=== PATIENT | female | born 1950 | race Caucasian/White ===

== ENCOUNTER 2017-11-10 02:24 | Inpatient (IN) | payer OTHER, MEDICARE ==
[~2017-11-10] VITALS: Ht 154.9 cm; Wt 73.6 kg
[~2017-11-10 02:24] MED LIST: AMITRIPTYLINE H25 M1 PO; AMITRIPTYLINE H25 M2 PO; ANTIVERT 25 MG25 M1 PO; BACTROBAN OINT.30 GM TOP; BACTROBAN15 GM TOP; BETAMETHASONE D0.054 TOP; BETAMETHASONE D15 G3 TOP; BIOTIN5000 MCG PO; CO Q-1050 MG PO; COMPAZINE10 M1 PO; COMPAZINE10 MG PO; CRESTOR5 M1 PO; CRESTOR5 MG PO; CULTURELLE PO; DESOXIMETASONE15 G1 TOP; FAMCICLOVIR500 M1 PO; FAMCICLOVIR500 MG PO; GABAPENTIN300 M2 PO; MECLIZINE HCL25 MG PO; MEDROL DOSEPAK1 PAC PO; METROCREAM0.75% TOP; METROCREAM45 GM TOP; NEURONTIN300 MG PO; OMEPRAZOLE40 M1 PO; OMEPRAZOLE40 MG PO; PROAIR HFA0.09 MG/Ac INH; PROBIOTIC1 EAC5 PO; REGLAN10 M1 PO; REGLAN5 MG PO; TOPICORT0.251 TOP; UBIQUINOL100 MG PO; VITAMIN D2000 UNIT PO; VITAMIN D32000 I1 PO; [UNRECOGNIZED DRUG - OTHER] PO
--- NOTE | 2017-11-10 03:06 | ED UPPER/LOWER EXTREMITY COMPL ---
See Addendum History of Present Illness General Chief Complaint: Fall Stated Complaint: FALL Source: patient, family, old records, EMS Exam Limitations: no limitations Vital Signs & Intake/Output Vital Signs & Intake/Output Vital Signs Date Time Temp Pulse Resp B/P B/P Pulse O2 O2 Flow FiO2 Mean Ox Delivery Rate 11/10 0601 98.0 82 18 131/68 98 Room Air 11/10 0514 98.2 82 16 145/69 96 Room Air 11/10 0232 98.1 86 20 162/74 94 Room Air Allergies Coded Allergies: Influenza Virus Vaccines (CELLULITIS, POSITIVE EGG ALLERGY 08/26/15) atorvastatin (MUSCLE ACHES 06/24/17) latex (UNKNOWN 08/26/15) lovastatin (MUSCLE ACHES 06/24/17) nitrofurantoin (GI UPSET 08/26/15) simvastatin (MUSCLE ACHES 06/24/17) zoster vaccine live (From ZOSTAVAX (PF)) (UNKNOWN 08/26/15) niacin (Mild, GI UPSET 08/26/15) amoxicillin (GI UPSET 08/26/15) clindamycin (GI UPSET 08/26/15) erythromycin base (GI UPSET 08/26/15) levofloxacin (GI UPSET 08/26/15) pravastatin (GI UPSET 08/26/15) Uncoded Allergies: ANTIBIOTICS (STOMACH SENSITIVITY 09/01/11) Reconcile Medications Amitriptyline HCl 25 MG TABLET 1 TAB PO QPM FIBROMYALGIA (Reported) Bacillus Coagulans (Probiotic) (Unknown Strength) CAPSULE.DR (Unknown Dose) PO DAILY PROBIOTIC (Reported) Betamethasone/Propylene Glyc (Betamethasone Dp Aug 0.05% Crm) 0.05 % CREAM..G. 1 DIAMOND TOP AD PRN SKIN (Reported) Biotin 5,000 MCG TAB.RAPDIS 1 CAP PO DAILY SUPPLEMENT (Reported) Cholecalciferol (Vitamin D3) (Vitamin D) 2,000 UNIT CAPSULE 1 CAP PO EOD SUPPLEMENT (Reported) Cyclobenzaprine HCl 5 MG TABLET 5 MG PO PRN MUSCLE SPASM (Reported) Desoximetasone 0.25 % CREAM..G. 1 DIAMOND TOP AD PRN SKIN (Reported) Famciclovir 500 MG TABLET 1 TAB PO PRN COLD SORE (Reported) Gabapentin 300 MG CAPSULE 1 CAP PO QPM FIBROMYALGIA (Reported) Meclizine HCl 25 MG TABLET 1 TAB PO PRN VERTIGO (Reported) Metoclopramide HCl (Reglan) 10 MG TABLET 1 TAB PO AD PRN GI (Reported) 30 minutes before meals and bedtime Metronidazole (Metrocream) 0.75 % CREAM..G. 1 DIAMOND TOP DAILY PRN ROSACEA ( Reported) apply to affected area(s) Mupirocin Calcium (Bactroban) 2 % CREAM..G. 1 DIAMOND TOP AD PRN SKIN (Reported) apply to affected area(s) Omeprazole 40 MG CAPSULE.DR 1 CAP PO BID PRN GI (Reported) Omeprazole 40 MG CAPSULE.DR 40 MG PO DAILY ACID REFLUX (Reported) Prochlorperazine Maleate (Compazine) (Unknown Strength) TABLET (Unknown Dose) PO AD PRN GI (Reported) Rosuvastatin Calcium (Crestor) 5 MG TABLET 1 TAB PO EOD CHOLESTEROL (Reported ) Ubiquinol (Unknown Strength) CAPSULE (Unknown Dose) PO DAILY SUPPLEMENT ( Reported) Triage Note: PT BIBA FROM HOME S/P FALL AND LANDING ON L HIP. C/O L HIP AND FOOT PAIN. CMS INTACT. DENIES HEADSTRIKE OR LOC, NOT ON THINNNERS. DENIES PAIN AT REST BUT STATES IS UNABLE TO BEAR WEIGHT ON LLE Triage Nurses Notes Reviewed? yes Onset: Just prior to arrival Duration: minute(s):, constant, continues in ED Timing: recent history Severity: severe Pain/Injury Location: Left: Hip, Knee, Ankle. Method of Injury: fall Modifying Factors: Improves With: immobilization. Worsens With: movement. Associated Symptoms: GCS 15 since, stiffness LMP (ages 10-50): post menopausal : No Patient currently breastfeeds: No HPI: Prior to admission patient got up from the couch lost her balance and fell onto her left hip. She complains of left hip knee and ankle pain sharp severe constant nonradiating associated with nausea vomiting. She was unable to ambulate after the incident. There was no fever chills nausea vomiting diarrhea abdominal pain chest pain shortness of breath headache dysuria rash bleeding (Ben Denton MD) Past History Travel History Traveled to [place] past 21 day No Medical History Any Pertinent Medical History? see below for history Neurological: NONE EENT: NONE Cardiovascular: hypertension, hyperlipidemia Respiratory: NONE Gastrointestinal: GERD Hepatic: NONE Renal: NONE Musculoskeletal: fibromyalgia Psychiatric: NONE Endocrine: osteoporosis Surgical History Surgical History: BUNIONECTOMY, HAMMER TOE Psychosocial History Who do you live with Spouse Services at Home None What is your primary language Belarusian Tobacco Use: Quit >30 days ago ETOH Use: denies use Illicit Drug Use: denies illicit drug use Family History Hx Contributory? No (Ben Denton MD) Review of Systems Review of Systems Constitutional: Reports: no symptoms. EENTM: Reports: no symptoms. Respiratory: Reports: no symptoms. Cardiovascular: Reports: no symptoms. Gastrointestinal/Abdominal: Reports: no symptoms. Genitourinary: Reports: no symptoms. Musculoskeletal: Reports: see HPI, joint pain. Skin: Reports: no symptoms. Neurological/Psychological: Reports: no symptoms. Hematologic/Endocrine: Reports: no symptoms. Immunological: Reports: no symptoms. All Other Systems: Reviewed and Negative (Ben Denton MD) Physical Exam Physical Exam General Appearance: well developed/nourished, alert, awake, anxious, mild distress Head: atraumatic, normal appearance Eyes: Bilateral: normal appearance, PERRL, EOMI. Ears, Nose, Throat: normal pharynx, normal ENT inspection, hearing grossly normal Neck: normal inspection, supple, full range of motion, no midline tenderness Cardiovascular/Respiratory: normal breath sounds, normal peripheral pulses, regular rate/rhythm, no respiratory distress Peripheral Pulses: 4+ carotid (R), 4+ carotid (L) Back: normal inspection, normal range of motion, no vertebral tenderness Shoulder Left: normal range of motion, normal inspection Shoulder Right: normal range of motion, normal inspection Elbow Left: normal range of motion, normal inspection Elbow Right: normal range of motion, normal inspection Hand Left: normal range of motion, abrasions (index finger) Hand Right: normal inspection, normal range of motion Upper Extremity Reflexes: 2+: bicep (R), bicep (L). Leg Left: normal range of motion, normal inspection Leg Right: normal range of motion, normal inspection Hip Left: normal inspection, soft tissue tenderness, limited range of motion Hip Right: normal range of motion, normal inspection Knee Left: normal inspection, tenderness, soft tissue tenderness, limited range of motion Knee Ligaments Left: pain anterior drawer, pain posterior drawer, pain medial stress Knee Right: normal range of motion, normal inspection Foot Left: normal range of motion, tenderness, limited range of motion, soft tissue tenderness, swelling (lateral malleolus) Foot Right: normal inspection, normal range of motion Lower Extremity Reflexes: 2+: knee (R), knee (L). Neurologic/Tendon: normal sensation, normal motor functions, normal tendon functions Skin: intact, normal color, warm/dry Lymphatic: no anterior cervical estelle (Ben Denton MD) Progress Differential Diagnosis: dislocation, fracture, sprain Plan of Care: Orders Procedure Date/time Status Regular Diet 11/10 B Active Vital Signs 11/10 0808 Active PARTIAL THROMBOPLASTIN TIME 11/10 05 Complete PROTHROMBIN TIME 11/10 534 Complete PT Evaluate & Treat 11/10 524 Active CASE MANAGEMENT CONSULT 11/10 524 Active URINALYSIS 11/10 518 Complete COMPREHENSIVE METABOLIC PANEL 11/10 518 Complete CBC WITHOUT DIFFERENTIAL 11/10 518 Complete Current Medications Sig/Myra Start time Last Medication Dose Stop Time Status Admin Amitriptyline HCl 25 MG QPM 11/10 2099 UNVr (Elavil 25 Mg. Tablet) Gabapentin 300 MG QPM 11/10 2100 UNVr (Neurontin) Atorvastatin Calcium 20 MG 1700 11/10 1700 UNVr (Lipitor) Metoclopramide HCl 10 MG .[AD] PRN 11/10 0715 UNVr (Reglan) Omeprazole 40 MG DAILY AC 11/10 0703 UNVr 11/10 (Prilosec) 0708 Laboratory Tests 11/10/17 0635: PT 10.8, INR 0.99, APTT 24 L 11/10/17 0557: Urine Color YEL, Urine Clarity CLEAR, Urine pH 6.0, Ur Specific Susan 1.010, Urine Protein NEG, Urine Ketones NEG, Urine Nitrite NEG, Urine Bilirubin NEG, Urine Urobilinogen 0.2, Ur Leukocyte Esterase NEG, Ur Microscopic EXAM NOT REQUIRED, Urine Hemoglobin NEG, Urine Glucose NEG 11/10/17 0545: Anion Gap 11, Estimated GFR > 60, BUN/Creatinine Ratio 23.8, Glucose 110 H, Calcium 9.7, Total Bilirubin 0.4, AST 27, ALT 35, Alkaline Phosphatase 81, Total Protein 6.6, Albumin 4.2, Globulin 2.4, Albumin/Globulin Ratio 1.8, CBC w Diff NO MAN DIFF REQ, RBC 4.48, MCV 89.1, MCH 30.1, MCHC 33.8, RDW 13.9, MPV 7.8, Gran % 76.5 H, Lymphocytes % 13.9 L, Monocytes % 8.4, Eosinophils % 1.2, Basophils % 0, Absolute Granulocytes 6.7 H, Absolute Lymphocytes 1.2, Absolute Monocytes 0.7 H, Absolute Eosinophils 0.1, Absolute Basophils 0 Diagnostic Imaging: Viewed by Me: Radiology Read, CT Scan. Discussed w/RAD: Radiology Read, CT Scan. Radiology Impression: Nondisplaced left acetabular fracture with a fracture gap width of 1 mm. Left hemipelvic retroperitoneal hematoma. Hand-Off Endorsed To: Miles Harper DO Endorsed Time: 0700 Pending: other (PT, case mgmt) Comments: Unable to bear weight on LLE. D/W Dr. Cordero no surgical intervention. Weight bearing as tolerated. (Bertin CERVANTES,Ben) Departure Departure Disposition: STILL A PATIENT Condition: Stable Clinical Impression Primary Impression: Left acetabular fracture Referrals: [place] APRN (PCP/Family) Departure Forms: Customer Survey General Discharge Information (Ben Denton MD) Departure Comments 11/10/17 8:16 AM 67-year-old female was signed out to me by Dr. Denton. She has a left acetabular fracture unable to walk. I paged case management and waiting to discuss optimal care. (Miles Harper DO)
--- NOTE | 2017-11-10 03:57 | RADIOLOGY REPORT ---
EXAMINATION: LEFT ANKLE 3 VIEWS CLINICAL INFORMATION: Left ankle pain after fall. COMPARISON: None. TECHNIQUE: AP, lateral, oblique views of the left ankle were obtained. FINDINGS: There are no fractures or dislocations. There is no significant soft tissue swelling. No ankle joint effusion is identified. There is a small plantar surface calcaneal spur. 2 threaded screws traversing the distal first metatarsal are intact without failure or migration. IMPRESSION: No evidence for acute injury to the left ankle. Small plantar surface calcaneal spur.
--- NOTE | 2017-11-10 03:58 | RADIOLOGY REPORT ---
EXAMINATION: XR HIP, LEFT CLINICAL INFORMATION: Left hip pain after fall. COMPARISON: None TECHNIQUE: AP and frog-leg lateral views of the left hip. FINDINGS: There is a thin linear lucency extending from the supra-acetabular region to the acetabular rim. The left femoral head is seated within a well-formed acetabulum. IMPRESSION: Thin linear lucency within the left acetabulum suspicious for an incomplete fracture. Consider correlation with CT for further tissue characterization.
--- NOTE | 2017-11-10 03:59 | RADIOLOGY REPORT ---
EXAMINATION: LEFT KNEE 3 VIEWS CLINICAL INFORMATION: Left knee pain after fall. COMPARISON: None. TECHNIQUE: AP, lateral, oblique views of the left knee were obtained. FINDINGS: There are no fractures or dislocations. There is no knee joint effusion. There is no significant soft tissue swelling. There is mild osteophyte formation about the medial and lateral compartments. IMPRESSION: Mild degenerative change without evidence for acute injury.
--- NOTE | 2017-11-10 04:54 | CT SCAN REPORT ---
EXAMINATION: CT LOWER EXTREMITY WITHOUT CONTRAST, LEFT CLINICAL INFORMATION: Pain after fall. Follow-up abnormal exam. COMPARISON: Same day left hip radiographs. TECHNIQUE: Contiguous helical images of the left hip were obtained without IV contrast. Multiplanar reconstructions were performed. DLP: 632 mGy-cm FINDINGS: As demonstrated on the same day left hip radiographs, there is a nondisplaced supra-acetabular fracture which extends to the articular surface. The maximal fracture gap width is approximately 1 mm. Fracture lines within the left acetabulum extending superiorly and medially. No additional fractures are identified. The left femoral head is seated within a well-formed acetabulum. Within the left hemipelvis, there is retroperitoneal soft tissue attenuation likely patient admitting representative of a hematoma. IMPRESSION: Nondisplaced left acetabular fracture with a fracture gap width of 1 mm. Left hemipelvic retroperitoneal hematoma.
[2017-11-10 06:00] LABS: ABSOLUTE BASOPHIL COUNT 0 /CUMM (0.0-0.2); ABSOLUTE EOSINOPHIL COUNT 0.1 /CUMM (0.0-0.7); ABSOLUTE GRANULOCYTE CT 6.7 /CUMM (1.4-6.5); ABSOLUTE LYMPH COUNT 1.2 /CUMM (1.2-3.4); ABSOLUTE MONOCYTE COUNT 0.7 /CUMM (0.10-0.60); BASOPHIL % 0 % (0.0-2.0); EOSINOPHIL % 1.2 % (0-5); GRANULOCYTE % 76.5 % (42.2-75.2); HEMATOCRIT 39.9 % (37-47); MEAN CORPUSCULAR HGB 30.1 PG (27.0-31.0); MEAN CORPUSCULAR HGB CONC 33.8 G/DL (33.0-37.0); MEAN CORPUSCULAR VOLUME 89.1 FL (81.0-99.0); MEAN PLATELET VOLUME 7.8 FL (7.4-10.4); PLATELET COUNT 223 /CUMM (130-400); RBC DISTRIBUTION WIDTH 13.9 % (11.5-14.5); RED BLOOD CELL CT 4.48 /CUMM (4.20-5.40); WHITE BLOOD CELL COUNT 8.8 /CUMM (4.8-10.8)
[2017-11-10] MEDS ORDERED: OMEPRAZOLE40 M1 PO (06:11)
[2017-11-10] MEDS ORDERED: CYCLOBENZAPRINE5 M2 PO (06:12)
[2017-11-10 06:54] LABS: PT 10.8 SEC (9.4-12.5); PTT 24 SEC (25-37)
--- NOTE | 2017-11-10 09:06 | History & Physical ---
Mary Trevizo 11/10/17 0906: General Information and HPI MD Statement: I have seen and personally examined ZONIA MOJICA and documented this H&P. Source of Information: patient Exam Limitations: no limitations History of Present Illness: This is a 67 YO F w/PMH significant for fibrimyalgia, interstitial cystitis, occasional vertigo, s/p cataract surgery both sides, osteoporesis in left hip( sees Dr. Gonsales) s/p zolendronic acid infusion x3(last one 10 years ago) , GERD, hyperparathyroidism, nodule in parathyroid(?); she is unsure of the details, hyperlipidemia, occasional dysphagia underwent work up 10 years ago w/o any significant pathology determined, sleep apnea on CPAP, who presents to the hospital after a fall. Per patient, she was on the couch 1 am and got up and experienced cramp in her thigh and was not able to walk and fell. Recently started PT on Monday, Monday and has been doing exercise for sciatica at home and believes she had the cramp from the exercise. After the fall, she was note able to get up and move, managmed to sit down and called her son and was brought to the hospital. After the fall, she experienced severe sharp pain in her left groin which radiated to her left toe, almost wanted to pass out because of the pain and vomitted 3 times. Did not hit her head. At baseline, she has paresthesias in her left LE 2/2 her sciatica. On vitamin D supplement, is not able to tolerate calcium(per patient). No h/o of CAD,underwent cardiac cath for palpitation in 2011 which was significant for 20% left descencing plaque(follows with Dr. Silva). Antibiotics listed in her allergies, she does not experience anaphylasix, but experiences GI upset. Denies smoking, ETOH or illicit drug use. Has strong f/h of cardiac disease. Allergies/Medications Allergies: Coded Allergies: Influenza Virus Vaccines (CELLULITIS, POSITIVE EGG ALLERGY 08/26/15) atorvastatin (MUSCLE ACHES 06/24/17) latex (UNKNOWN 08/26/15) lovastatin (MUSCLE ACHES 06/24/17) nitrofurantoin (GI UPSET 08/26/15) simvastatin (MUSCLE ACHES 06/24/17) zoster vaccine live (From ZOSTAVAX (PF)) (UNKNOWN 08/26/15) niacin (Mild, GI UPSET 08/26/15) amoxicillin (GI UPSET 08/26/15) clindamycin (GI UPSET 08/26/15) erythromycin base (GI UPSET 08/26/15) levofloxacin (GI UPSET 08/26/15) pravastatin (GI UPSET 08/26/15) Uncoded Allergies: ANTIBIOTICS (STOMACH SENSITIVITY 09/01/11) Past History Travel History Traveled to [place] past 21 day No Medical History Neurological: NONE EENT: NONE Cardiovascular: hypertension, hyperlipidemia Respiratory: NONE Gastrointestinal: GERD Hepatic: NONE Renal: NONE Musculoskeletal: fibromyalgia Psychiatric: NONE Endocrine: osteoporosis Surgical History Surgical History: BUNIONECTOMY, HAMMER TOE Past Family/Social History Psychosocial History Services at Home: None ETOH Use: denies use Illicit Drug Use: denies illicit drug use Review of Systems Review of Systems Constitutional: Denies: chills, diaphoresis, fever, malaise, weakness, unexplained weight loss. EENTM: Reports: no symptoms. Denies: blurred vision, double vision, visual changes. Cardiovascular: Reports: no symptoms. Denies: chest pain, edema, orthopena, palpitations, peripheral edema, syncope. Respiratory: Denies: cough, hemoptysis, orthopnea, short of breath, sputum production, stridor, wheezing. GI: Denies: abdominal pain, bloating, constipation, diarrhea, distention, bowel incontinence, melena, nausea, bloody stool, changes in stool, vomiting, steatorrhea. Genitourinary: Denies: discharge, dysuria, frequency, hematuria, hesitation, nocturia, pain, urgency. Musculoskeletal: Reports: joint pain, muscle pain, muscle stiffness. Denies: back pain, joint swelling, neck pain. Skin: Reports: no symptoms. Neurological/Psychological: Reports: no symptoms. Hematologic/Endocrine: Reports: no symptoms. Denies: bruising, bleeding, polyuria, polydipsia, other. Immunologic/Allergic: Reports: no symptoms. All Other Systems: Reviewed and Negative Exam & Diagnostic Data Last 24 Hrs of Vital Signs/I&O Vital Signs Date Time Temp Pulse Resp B/P B/P Pulse O2 O2 Flow FiO2 Mean Ox Delivery Rate 11/10 0601 98.0 82 18 131/68 98 Room Air 05/18 0514 98.2 82 16 145/69 96 Room Air 11/10 0232 98.1 86 20 162/74 94 Room Air Intake & Output 11/10 1600 11/10 0800 11/10 0000 Intake Total 0 Output Total Balance 0 Intake, Oral 0 Physical Exam General Appearance Alert, Oriented X3, Cooperative, No Acute Distress Skin No Rashes, No Breakdown, No Significant Lesion Skin Temp/Moisture Exam: Warm/Dry Sepsis Skin Exam (color): Normal for Ethnicity HEENT Atraumatic, PERRLA, EOMI, Mucous Membr. moist/pink Neck Supple Lymphatic Axillary nl Cardiovascular Regular Rate, Normal S1, Normal S2, No Murmurs, Gallops, Rubs Lungs Clear to Auscultation, Normal Air Movement Abdomen Normal Bowel Sounds, Soft, No Tenderness, No Hepatospenomegaly, No Masses Neurological Normal Speech, Normal Tone, Sensation Intact, Cranial Nerves 3-12 NL, Reflexes 2+ Extremities No Clubbing, No Cyanosis, No Edema, Normal Pulses, no tenderness to palpation on LEs, LE not shortened or abducted, has nl reflexes, sensation and pulse, ROM limited in LE 2/2 pain, no ecchymosis or swelling noted Vascular Normal Pulses, Pulses Symmetrical Diagnostic Data Other Results CT LOWER EXT WO IV CONTRAST IMPRESSION: Nondisplaced left acetabular fracture with a fracture gap width of 1 mm. Left hemipelvic retroperitoneal hematoma. XRY-KNEE COMPLETE LEFT IMPRESSION: Mild degenerative change without evidence for acute injury. XRY-ANKLE 3 OR MORE VIEWS L IMPRESSION: No evidence for acute injury to the left ankle. Small plantar surface calcaneal spur. Assessment/Plan Assessment: 67-year-old female with history of osteoporosis in the left he presents after a fall noted to have nondisplaced left acetabular fracture. Problems #Nondisplaced left acetabular fracture #Left hemipelvic retroperitoneal hematoma #Fibromyalgia #Osteoporosis #MARY KATE on CPAP #GERD #Hyperlipidemia Plan -Monitor in general medicine floor -May benefit from fall prevention assessment -Obtain an EKG(no EKG obtained by emergency room before admission) -orthopedic consult -PT evaluation -C/w PPI -Continue nocturnal CPAP -c/w home meds -DVT prophylaxis w/ALPS given retroperitoneal hematoma -recheck CBC later today to trend H&H given hematoma -patient is full code Case was discussed with attending Dr. Terrell. Please refer to his addendum for further recommendations. As Ranked By This Provider Problem List: 1. Left acetabular fracture Core Measures/Misc (03/12) Acute Coronary Syndrome ACS Diagnosis: No Congestive Heart Failure Congestive Heart Failure Diagnosis No Cerebrovascular Accident CVA/TIA Diagnosis: No VTE (View Protocol) VTE Risk Factors Age>40 No Mechanical VTE Prophylaxis d/t N/A MechProphylax Ordered No VTE Pharm Prophylaxis d/t NA PharmProphylax ordered Sepsis (View protocol) Sepsis Present: No Merle Terrell 11/10/17 1630: General Information and HPI Allergies/Medications Home Med list Acetaminophen (Tylenol Extra Strength) 500 MG TABLET 1 TAB PO Q6 PRN Pain Amitriptyline HCl 25 MG TABLET 1 TAB PO QPM FIBROMYALGIA (Reported) Bacillus Coagulans (Probiotic) (Unknown Strength) CAPSULE.DR 2 Billion PO DAILY PROBIOTIC (Reported) Betamethasone/Propylene Glyc (Betamethasone Dp Aug 0.05% Crm) 0.05 % CREAM..G. 1 DIAMOND TOP AD PRN SKIN (Reported) Biotin 5,000 MCG TAB.RAPDIS 1 CAP PO DAILY SUPPLEMENT (Reported) Cholecalciferol (Vitamin D3) (Vitamin D) 2,000 UNIT CAPSULE 1 CAP PO EOD SUPPLEMENT (Reported) Desoximetasone 0.25 % CREAM..G. 1 DIAMOND TOP AD PRN SKIN (Reported) Famciclovir 500 MG TABLET 1 TAB PO PRN COLD SORE (Reported) Gabapentin 300 MG CAPSULE 1 CAP PO QPM FIBROMYALGIA (Reported) Meclizine HCl 25 MG TABLET 1 TAB PO PRN VERTIGO (Reported) Metoclopramide HCl (Reglan) 10 MG TABLET 1 TAB PO AD PRN GI (Reported) 30 minutes before meals and bedtime Metoclopramide HCl (Reglan) 5 MG TABLET 1 TAB PO Q6-8 PRN Nausea Metronidazole (Metrocream) 0.75 % CREAM..G. 1 DIAMOND TOP DAILY PRN ROSACEA ( Reported) apply to affected area(s) Mupirocin Calcium (Bactroban) 2 % CREAM..G. 1 DIAMOND TOP AD PRN SKIN (Reported) apply to affected area(s) Omeprazole 40 MG CAPSULE.DR 40 MG PO DAILY ACID REFLUX (Reported) Rosuvastatin Calcium (Crestor) 5 MG TABLET 1 TAB PO EOD CHOLESTEROL (Reported ) Ubiquinol (Unknown Strength) CAPSULE 50 MG PO DAILY SUPPLEMENT (Reported) Attending MD Review Statement Attending Statement Attending MD Statement: examined this patient, discuss w/resident/PA/BARREL PLATER, agreed w/resident/PA/BARREL PLATER, reviewed EMR data (avail), discussed with nursing Attending Assessment/Plan: Appreciated orthopedics consult. plan is to manage consrervatively with pain control and limited wt bearing for next 6 weeks per orhto recommendations and f/ u with ortho in clinic after discharge in 6 weeks. ? Hematoma retroperitoneal on CT - f/u on serial cbc. dw pt the care plan.
[2017-11-10 11:48] VITALS: BP 128/74
--- NOTE | 2017-11-10 13:50 | Cons- Orthopedic ---
General Information and HPI Consulting Request Date of Consult: 11/10/17 Requested By: Merle Terrell MD History of Present Illness: 67-year-old female who is experiencing left groin pain status post fall. She presents to the hospital emergency room x-rays and a CT scan was performed which shows a nondisplaced acetabular fracture. She was admitted for pain control. States the pain is in the left groin and radiates down her leg. Denies any paresthesias. Allergies/Medications Allergies: Coded Allergies: Influenza Virus Vaccines (CELLULITIS, POSITIVE EGG ALLERGY 08/26/15) atorvastatin (MUSCLE ACHES 06/24/17) latex (UNKNOWN 08/26/15) lovastatin (MUSCLE ACHES 06/24/17) nitrofurantoin (GI UPSET 08/26/15) simvastatin (MUSCLE ACHES 06/24/17) zoster vaccine live (From ZOSTAVAX (PF)) (UNKNOWN 08/26/15) niacin (Mild, GI UPSET 08/26/15) amoxicillin (GI UPSET 08/26/15) clindamycin (GI UPSET 08/26/15) erythromycin base (GI UPSET 08/26/15) levofloxacin (GI UPSET 08/26/15) pravastatin (GI UPSET 08/26/15) Uncoded Allergies: ANTIBIOTICS (STOMACH SENSITIVITY 09/01/11) Home Med List: Amitriptyline HCl 25 MG TABLET 1 TAB PO QPM FIBROMYALGIA (Reported) Bacillus Coagulans (Probiotic) (Unknown Strength) CAPSULE.DR (Unknown Dose) PO DAILY PROBIOTIC (Reported) Betamethasone/Propylene Glyc (Betamethasone Dp Aug 0.05% Crm) 0.05 % CREAM..G. 1 DIAMOND TOP AD PRN SKIN (Reported) Biotin 5,000 MCG TAB.RAPDIS 1 CAP PO DAILY SUPPLEMENT (Reported) Cholecalciferol (Vitamin D3) (Vitamin D) 2,000 UNIT CAPSULE 1 CAP PO EOD SUPPLEMENT (Reported) Cyclobenzaprine HCl 5 MG TABLET 5 MG PO PRN MUSCLE SPASM (Reported) Desoximetasone 0.25 % CREAM..G. 1 DIAMOND TOP AD PRN SKIN (Reported) Famciclovir 500 MG TABLET 1 TAB PO PRN COLD SORE (Reported) Gabapentin 300 MG CAPSULE 1 CAP PO QPM FIBROMYALGIA (Reported) Meclizine HCl 25 MG TABLET 1 TAB PO PRN VERTIGO (Reported) Metoclopramide HCl (Reglan) 10 MG TABLET 1 TAB PO AD PRN GI (Reported) 30 minutes before meals and bedtime Metronidazole (Metrocream) 0.75 % CREAM..G. 1 DIAMOND TOP DAILY PRN ROSACEA ( Reported) apply to affected area(s) Mupirocin Calcium (Bactroban) 2 % CREAM..G. 1 DIAMOND TOP AD PRN SKIN (Reported) apply to affected area(s) Omeprazole 40 MG CAPSULE.DR 40 MG PO DAILY ACID REFLUX (Reported) Rosuvastatin Calcium (Crestor) 5 MG TABLET 1 TAB PO EOD CHOLESTEROL (Reported ) Ubiquinol (Unknown Strength) CAPSULE (Unknown Dose) PO DAILY SUPPLEMENT ( Reported) Past History Medical History Blood Transfusion Hx: Yes Neurological: NONE EENT: NONE Cardiovascular: hypertension, hyperlipidemia Respiratory: NONE Gastrointestinal: GERD Hepatic: NONE Renal: NONE Musculoskeletal: fibromyalgia Psychiatric: NONE Endocrine: osteoporosis Surgical History Pertinent Surgical History: BUNIONECTOMY, HAMMER TOE Psychosocial History Where Do You Live? Home Services at Home: None Smoking Status: Former Smoker ETOH Use: denies use Illicit Drug Use: denies illicit drug use Exam & Diagnostic Data Vital Signs and I&O Vital Signs Date Time Temp Pulse Resp B/P B/P Pulse O2 O2 Flow FiO2 Mean Ox Delivery Rate 11/10 1148 98.6 84 18 128/74 95 Room Air 11/10 1015 95 Room Air Room Air 11/10 1014 97.4 86 18 140/63 95 Room Air Room Air 11/10 0601 98.0 82 18 131/68 98 Room Air 11/10 0514 98.2 82 16 145/69 96 Room Air 11/10 0232 98.1 86 20 162/74 94 Room Air Intake & Output 11/10 1600 11/10 0800 11/10 0000 11/09 1600 11/09 0800 11/09 0000 Intake Total 0 Output Total Balance 0 Intake, Oral 0 Patient 162 lb Weight Weight Bed scale Measurement Method Physical Exam: CT scan of the left hip reveals a nondisplaced acetabular fracture. There is a 1 mm gap. This is within acceptable limits reviewed with Dr. Osman. Tender over the left inguinal region with motion of the left hip. Left lower extremity is neurovascularly intact. X-rays of her knee and ankle show no signs of fracture dislocation. Skin is intact. Assessment/Plan Assessment/Plan Left acetabular fracture nondisplaced -Discussed with Dr. Osman patient will be toe-touch weightbearing with a walker for the next 6 weeks. -Pain control with pain meds. -Follow up in our office in 6 weeks at [phone] for repeat x-rays of the left hip. Consult Acknowledgment - Thank you for your consult request.
[2017-11-10 15:08] VITALS: BP 130/74
--- NOTE | 2017-11-10 16:29 | Admission Certification ---
Admission Certification Certification Statement - As attending physician, I certify that at the time of - admission, based on clinical presentation, severity of - symptoms, need for further diagnostic testing and - therapeutic interventions, and risk of adverse outcomes - without in-hospital treatment, in my clinical assessment, - this patient requires an acute hospital stay for a minimum - of two nights or longer. I have also considered psychsocial - factors such as support system, advanced age, financial - issues, cognitive issues, and failed out-patient treatments, - past re-admission history, safety of patient, and lack of - compliance as applicable. Specific rationale supporting this admission is: left acetabular fracture secondary to fall
[2017-11-10 17:46] VITALS: BP 138/82
[2017-11-10 18:01] LABS: ABSOLUTE BASOPHIL COUNT 0 /CUMM (0.0-0.2); ABSOLUTE EOSINOPHIL COUNT 0.1 /CUMM (0.0-0.7); ABSOLUTE LYMPH COUNT 1.2 /CUMM (1.2-3.4); ABSOLUTE MONOCYTE COUNT 0.7 /CUMM (0.10-0.60); BASOPHIL % 0.3 % (0.0-2.0); GRANULOCYTE % 66.9 % (42.2-75.2); HEMATOCRIT 39.9 % (37-47); MEAN CORPUSCULAR HGB 30.4 PG (27.0-31.0); MEAN CORPUSCULAR HGB CONC 33.9 G/DL (33.0-37.0); MEAN CORPUSCULAR VOLUME 89.8 FL (81.0-99.0); MEAN PLATELET VOLUME 7.9 FL (7.4-10.4); PLATELET COUNT 216 /CUMM (130-400); RBC DISTRIBUTION WIDTH 13.8 % (11.5-14.5); RED BLOOD CELL CT 4.45 /CUMM (4.20-5.40)
[2017-11-10 22:28] VITALS: BP 144/84
[2017-11-11 06:27] VITALS: BP 120/62
[2017-11-11 14:40] VITALS: BP 109/72
--- NOTE | 2017-11-11 15:48 | PN- Att Addend ---
Assessment/Plan Assessment/Plan 67 YO F w/PMH significant for fibromyalgia, interstitial cystitis, occasional vertigo, s/p cataract surgery both eyes, osteoporesis in left hip(sees Dr. Gonsales) s/p zolendronic acid infusion x3(last one 10 years ago) , GERD, hyperparathyroidism, hyperlipidemia, occasional dysphagia underwent work up 10 years ago w/o any significant pathology determined, sleep apnea on CPAP, who presents to the hospital after a fall. After the fall, she was not able to get up and move, managed to sit down and called her son and was brought to the hospital. Nondisplaced left acetabular fracture-plan is to manage consrervatively with pain control and limited wt bearing for next 6 weeks per orhto recommendations and f/u with ortho in clinic after discharge in 6 weeks. Left hemipelvic retroperitoneal hematoma- hb stable. recheck in am. Consult Acknowledgment - Thank you for your consult request. Review of Systems Review of Systems Constitutional: Denies: chills, fever. EENTM: Denies: eye pain. Cardiovascular: Denies: chest pain, palpitations. Respiratory: Denies: cough. GI: Denies: abdominal pain. Physical Exam Physical Exam General Appearance: well developed/nourished, no apparent distress, alert, awake , anxious Head: atraumatic, normal appearance Eyes: Bilateral: EOMI. Respiratory: normal breath sounds, chest non-tender Cardiovascular: regular rate/rhythm Gastrointestinal: soft, non-tender Neurologic/Psych: awake, alert, oriented x 3 Core Measures ACS in differential dx? No CVA/TIA Diagnosis: No Sepsis Present: No Sepsis Focused Exam Completed? No
[2017-11-11 21:37] VITALS: BP 120/64
[2017-11-12 06:37] VITALS: BP 134/74
[2017-11-12 08:30] LABS: ABSOLUTE BASOPHIL COUNT 0 /CUMM (0.0-0.2); ABSOLUTE EOSINOPHIL COUNT 0.2 /CUMM (0.0-0.7); ABSOLUTE GRANULOCYTE CT 2.5 /CUMM (1.4-6.5); ABSOLUTE LYMPH COUNT 1.3 /CUMM (1.2-3.4); ABSOLUTE MONOCYTE COUNT 0.5 /CUMM (0.10-0.60); BASOPHIL % 0.4 % (0.0-2.0); EOSINOPHIL % 4.1 % (0-5); GRANULOCYTE % 54.9 % (42.2-75.2); HEMATOCRIT 39.8 % (37-47); MEAN CORPUSCULAR HGB 30.4 PG (27.0-31.0); MEAN CORPUSCULAR HGB CONC 33.8 G/DL (33.0-37.0); MEAN CORPUSCULAR VOLUME 89.8 FL (81.0-99.0); PLATELET COUNT 199 /CUMM (130-400); RBC DISTRIBUTION WIDTH 13.6 % (11.5-14.5); RED BLOOD CELL CT 4.43 /CUMM (4.20-5.40); WHITE BLOOD CELL COUNT 4.6 /CUMM (4.8-10.8)
--- NOTE | 2017-11-12 12:15 | Patient Discharge Instructions ---
Discharge Instructions General Discharge Information You were seen/treated for: Left acetabular fracture nondisplaced Special Instructions: Please follow-up with your primary care physician within 7 days of discharge. You should be toe-touch weightbearing with a walker for the next 6 weeks. Follow up in the office of Dr Osman in 6 weeks at [phone] for repeat x- rays of the left hip. We have provided you with a referral. Acute Coronary Syndrome Inclusion Criteria At DC or during hospital stay patient has or had the following: ACS DIAGNOSIS No Discharge Core Measures Meds if any: Prescribed or Continued at Discharge Meds if any: NOT Prescribed or Continued at Discharge Congestive Heart Failure Inclusion Criteria At DC or during hospital stay patient has or had the following: CHF DIAGNOSIS No Discharge Core Measures Meds if any: Prescribed or Continued at Discharge Meds if any: NOT Prescribed or Continued at Discharge Cerebrovascular accident Inclusion Criteria At DC or during hospital stay patient has or had the following: CVA/TIA Diagnosis No Discharge Core Measures Meds if any: Prescribed or Continued at Discharge Meds if any: NOT Prescribed or Continued at Discharge Venous thromboembolism Inclusion Criteria VTE Diagnosis No VTE Type NONE VTE Confirmed by (Test) NONE Discharge Core Measures - Per Current guidelines, there needs to be overlap - treatment for the first 5 days of Warfarin therapy. - If discharged on Warfarin prior to 5 days of - overlap therapy, the patient will need to be - assessed for post discharge needs including - *Post discharge parental anticoagulation - *Warfarin and/or parental anticoagulation education - *Follow up date to check INR post discharge At least 5 days overlap therapy as Inpatient No Meds if any: Prescribed or Continued at Discharge Note: Overlap Therapy is Warfarin and Anticoagulant Meds if any: NOT Prescribed or Continued at Discharge Meds if any: NOT Prescribed or Continued at Discharge
--- NOTE | 2017-11-12 14:10 | PN- Att Addend ---
Assessment/Plan Assessment/Plan 67 YO F w/PMH significant for fibromyalgia, interstitial cystitis, occasional vertigo, s/p cataract surgery both eyes, osteoporesis in left hip(sees Dr. Gonsales) s/p zolendronic acid infusion x3(last one 10 years ago) , GERD, hyperparathyroidism, hyperlipidemia, occasional dysphagia underwent work up 10 years ago w/o any significant pathology determined, sleep apnea on CPAP, who presents to the hospital after a fall. After the fall, she was not able to get up and move, managed to sit down and called her son and was brought to the hospital. Nondisplaced left acetabular fracture-plan is to manage consrervatively with pain control and limited wt bearing for next 6 weeks per orhto recommendations and f/u with ortho in clinic after discharge in 6 weeks. Left hemipelvic retroperitoneal hematoma- hb stable. recheck in am. Consult Acknowledgment - Thank you for your consult request. Review of Systems Review of Systems Constitutional: Denies: chills, fever. EENTM: Denies: eye pain. Cardiovascular: Denies: chest pain, palpitations. Respiratory: Denies: cough. GI: Denies: abdominal pain. Musculoskeletal: Reports: joint pain. Neurological/Psychological: Denies: confusion. PHYSICAL EXAM Last 24hrs of Vital Signs Vital Signs Date Time Temp Pulse Resp B/P B/P Pulse O2 O2 Flow FiO2 Mean Ox Delivery Rate 11/12 0800 94 Room Air 11/12 0637 97.9 75 20 134/74 94 11/11 2137 98.4 95 19 120/64 95 Room Air 11/11 1600 Room Air 11/11 1440 98.3 92 18 109/72 94 Room Air Physical Exam General Appearance Alert, Oriented X3, Cooperative, No Acute Distress HEENT Atraumatic, EOMI Cardiovascular Regular Rate, Normal S1, Normal S2 Lungs Clear to Auscultation, Normal Air Movement Abdomen Normal Bowel Sounds, Soft, No Tenderness Neurological Normal Speech Extremities No Clubbing, No Cyanosis ITS Data Other Results CT LOWER EXT WO IV CONTRAST IMPRESSION: Nondisplaced left acetabular fracture with a fracture gap width of 1 mm. Left hemipelvic retroperitoneal hematoma. XRY-KNEE COMPLETE LEFT IMPRESSION: Mild degenerative change without evidence for acute injury. XRY-ANKLE 3 OR MORE VIEWS L IMPRESSION: No evidence for acute injury to the left ankle. Small plantar surface calcaneal spur.
--- NOTE | 2017-11-12 14:18 | Discharge Summary ---
Visit Information Visit Dates Admission Date: 11/10/17 Discharge Date: 11/14/2017 Hospital Course Course Attending Physician: Xander CERVANTES,Merle Obando Primary Care Physician: Candy Camp APRN Hospital Course: Ms Tompkins is a 67 YO F w/PMH significant for fibrimyalgia, interstitial cystitis , occasional vertigo, s/p cataract surgery, osteoporesis in left hip(sees Dr. Gonsales) s/p zolendronic acid infusion x3(last one 10 years ago) , GERD, hyperparathyroidism, nodule in parathyroid(?); she is unsure of the details, hyperlipidemia, occasional dysphagia underwent work up 10 years ago w/o any significant pathology determined, sleep apnea on CPAP who presented to the emergency department on 11/10/2017 after recent fall. Vital signs at the time of admission temperature 98.1, pulse 86, respirations 20 , blood pressure 162/74 saturating 94% on room air. Labs: WBC 8.8 H&H 13.5 and 39.9, platelets 233, sodium 141, potassium 4.4, chloride 105, bicarbonate 25, BUN 19, creatinine 0.8 She was admitted on the General medical service for the following problems. Problems #Nondisplaced left acetabular fracture #Fibromyalgia #Osteoporosis #MARY KATE on CPAP #GERD #Hyperlipidemia Plan Imaging studies shown a nondisplaced left acetabular fracture with the fracture gap with a 1 mm. We continued with conservative management. Her pain and nausea was managed symtomatically. Her H/H was also closely monitored to ensure that her retroperitoneal hematoma was not worsening. She obtained a consultation from orthopedics who recommended following up tratement as an outpatient in six weeks. She will likely require additional X-Rays at that point and in the interim should be toe-touch weightbearing with a walker for the next 6 weeks. Patient was continued on nocturnal CPAP. Patient was a full code over the course of the admission. *The results of all imaging studies have been attached to this document. Allergies: Coded Allergies: Influenza Virus Vaccines (CELLULITIS, POSITIVE EGG ALLERGY 08/26/15) atorvastatin (MUSCLE ACHES 06/24/17) latex (UNKNOWN 08/26/15) lovastatin (MUSCLE ACHES 06/24/17) nitrofurantoin (GI UPSET 08/26/15) simvastatin (MUSCLE ACHES 06/24/17) zoster vaccine live (From ZOSTAVAX (PF)) (UNKNOWN 08/26/15) niacin (Mild, GI UPSET 08/26/15) amoxicillin (GI UPSET 08/26/15) clindamycin (GI UPSET 08/26/15) erythromycin base (GI UPSET 08/26/15) levofloxacin (GI UPSET 08/26/15) pravastatin (GI UPSET 08/26/15) Uncoded Allergies: ANTIBIOTICS (STOMACH SENSITIVITY 09/01/11) Pertinent Lab Results: SERVICE DATE: 11/10/17 EXAM TYPE: RAD - XRY-ANKLE 3 OR MORE VIEWS L EXAMINATION: LEFT ANKLE 3 VIEWS CLINICAL INFORMATION: Left ankle pain after fall. COMPARISON: None. TECHNIQUE: AP, lateral, oblique views of the left ankle were obtained. FINDINGS: There are no fractures or dislocations. There is no significant soft tissue swelling. No ankle joint effusion is identified. There is a small plantar surface calcaneal spur. 2 threaded screws traversing the distal first metatarsal are intact without failure or migration. IMPRESSION: No evidence for acute injury to the left ankle. Small plantar surface calcaneal spur. DICTATED BY: Thang Rollins MD SERVICE DATE: 11/10/17 EXAM TYPE: RAD - XRY-HIP 2-3 VIEWS, LEFT EXAMINATION: XR HIP, LEFT CLINICAL INFORMATION: Left hip pain after fall. COMPARISON: None TECHNIQUE: AP and frog-leg lateral views of the left hip. FINDINGS: There is a thin linear lucency extending from the supra-acetabular region to the acetabular rim. The left femoral head is seated within a well-formed acetabulum. IMPRESSION: Thin linear lucency within the left acetabulum suspicious for an incomplete fracture. Consider correlation with CT for further tissue characterization. DICTATED BY: Thang Rollins MD SERVICE DATE: 11/10/17 EXAM TYPE: RAD - XRY-KNEE COMPLETE LEFT EXAMINATION: LEFT KNEE 3 VIEWS CLINICAL INFORMATION: Left knee pain after fall. COMPARISON: None. TECHNIQUE: AP, lateral, oblique views of the left knee were obtained. FINDINGS: There are no fractures or dislocations. There is no knee joint effusion. There is no significant soft tissue swelling. There is mild osteophyte formation about the medial and lateral compartments. IMPRESSION: Mild degenerative change without evidence for acute injury. DICTATED BY: Thang Rollins MD SERVICE DATE: 11/10/17 EXAM TYPE: CAT - CT LOWER EXT WO IV CONTRAST EXAMINATION: CT LOWER EXTREMITY WITHOUT CONTRAST, LEFT CLINICAL INFORMATION: Pain after fall. Follow-up abnormal exam. COMPARISON: Same day left hip radiographs. TECHNIQUE: Contiguous helical images of the left hip were obtained without IV contrast. Multiplanar reconstructions were performed. DLP: 632 mGy-cm FINDINGS: As demonstrated on the same day left hip radiographs, there is a nondisplaced supra-acetabular fracture which extends to the articular surface. The maximal fracture gap width is approximately 1 mm. Fracture lines within the left acetabulum extending superiorly and medially. No additional fractures are identified. The left femoral head is seated within a well-formed acetabulum. Within the left hemipelvis, there is retroperitoneal soft tissue attenuation likely guest experience representative of a hematoma. IMPRESSION: Nondisplaced left acetabular fracture with a fracture gap width of 1 mm. Left hemipelvic retroperitoneal hematoma. DICTATED BY: Thang Rollins MD Disposition Summary Disposition Principal Diagnosis: #Nondisplaced left acetabular fracture Additional Diagnosis: #Left hemipelvic retroperitoneal hematoma #Fibromyalgia #Osteoporosis #MARY KATE on CPAP #GERD #Hyperlipidemia Discharge Disposition: SNF Discharge Instructions General Discharge Information Code Status: Full Code Patient's Diet: Heart Healthy Patient's Activity: As Tolerated, toe touch weightbearing Follow-Up Instructions/Appts: Please follow-up with your primary care physician within 7 days of discharge. You should be toe-touch weightbearing with a walker for the next 6 weeks. Follow up in the office of Dr Osman in 6 weeks at [phone] for repeat x- rays of the left hip. We have provided you with a referral. Medications at Discharge Discharge Medications: Stop taking the following medications: Cyclobenzaprine HCl (Cyclobenzaprine HCl) 5 MG TABLET ORAL NEEDED Continue taking these medications: Amitriptyline HCl (Amitriptyline HCl) 25 MG TABLET 1 Tablet ORAL Every night Qty = 90 Comments: Last Taken:11/13/17 Time:1030 PM Rosuvastatin Calcium (Crestor) 5 MG TABLET 1 Tablet ORAL Every other day Qty = 30 Comments: Last Taken:11/10/17 Time:430 PM Gabapentin (Gabapentin) 300 MG CAPSULE 1 Capsule ORAL Every night Comments: Last Taken:11/13/17 Time:930 PM Metronidazole (Metrocream) 0.75 % CREAM..G. 1 Application On the skin DAILY as needed for ROSACEA Instructions: apply to affected area(s) Comments: NOT GIVEN IN HOSPITAL Meclizine HCl (Meclizine HCl) 25 MG TABLET 1 Tablet ORAL as needed for VERTIGO Qty = 30 Comments: NOT GIVEN IN HOSPITAL Famciclovir (Famciclovir) 500 MG TABLET 1 Tablet ORAL as needed for COLD SORE Qty = 21 Comments: NOT GIVEN IN HOSPITAL Bacillus Coagulans (Probiotic) (Unknown Strength) CAPSULE. 2 Billion ORAL DAILY Comments: Last Taken:11/14/17 Time:0815 AM Metoclopramide HCl (Reglan) 10 MG TABLET 1 Tablet ORAL As Directed as needed for GI Instructions: 30 minutes before meals and bedtime Comments: Last Taken:11/13/17 Time:100 PM Mupirocin Calcium (Bactroban) 2 % CREAM..G. 1 Application On the skin As Directed as needed for SKIN Instructions: apply to affected area(s) Comments: NOT GIVEN IN HOSPITAL Desoximetasone (Desoximetasone) 0.25 % CREAM..G. 1 Application On the skin As Directed as needed for SKIN Comments: NOT GIVEN IN HOSPITAL Betamethasone/Propylene Glyc (Betamethasone Dp Aug 0.05% Crm) 0.05 % CREAM..G. 1 Application On the skin As Directed as needed for SKIN Comments: NOT GIVEN IN HOSPITAL Ubiquinol (Ubiquinol) (Unknown Strength) CAPSULE 50 Milligram ORAL DAILY Comments: NOT GIVEN IN HOSPITAL Biotin (Biotin) 5,000 MCG TAB.RAPDIS 1 Capsule ORAL DAILY Comments: NOT GIVEN IN HOSPITAL Cholecalciferol (Vitamin D3) (Vitamin D) 2,000 UNIT CAPSULE 1 Capsule ORAL Every other day Comments: Last Taken:11/14/17 Time:0930 AM Omeprazole (Omeprazole) 40 MG CAPSULE. 40 Milligram ORAL DAILY Comments: Last Taken:11/14/17 Time:0700 AM Start taking the following new medications: Metoclopramide HCl (Reglan) 5 MG TABLET 1 Tablet ORAL Every 6-8 Hours as needed for Nausea Qty = 30 No Refills Comments: NOT GIVEN IN HOSPITAL Acetaminophen (Tylenol Extra Strength) 500 MG TABLET 1 Tablet ORAL EVERY SIX HOURS as needed for Pain Qty = 20 No Refills Comments: Last Taken:11/14/17 Time:0230 AM Copies To: [place] APRNer MD,Chris Attending MD Review Statement Documenting Attending: Xander CERVANTES,Merle Obando Other Findings: agree with the above discharge plan.
[2017-11-12 14:54] VITALS: BP 117/78
[2017-11-12 21:25] VITALS: BP 120/70
[2017-11-13 06:56] VITALS: BP 126/68
--- NOTE | 2017-11-13 07:20 | PN- Housestaff ---
Shante CERVANTES,[facility] 11/13/17 0720: Subjective Follow-up For: Pain Management Subjective: Ms Tompkins was seen and examined this morning. She is resting comfortably in bed. States that over last 24 she has had decreased by mouth intake owing to episodes of regurgitation. Denies any fever, chills, or vomiting. Has a long- standing history of GERD. Currently not in any pain although states when she tries to ambulate or move, pain is rated at a 10 out of 10 in severity. She has been using CPAP overnight. Review of Systems Constitutional: Reports: see HPI. Objective Last 24 Hrs of Vital Signs/I&O Vital Signs Date Time Temp Pulse Resp B/P B/P Pulse O2 O2 Flow FiO2 Mean Ox Delivery Rate 11/13 0931 Room Air Room Air 11/13 0656 97.7 80 20 126/68 93 Room Air 11/13 0000 CPAP 11/12 2125 98.1 88 18 120/70 95 Room Air 11/12 1454 98.7 93 17 117/78 95 Room Air Intake & Output 11/13 1600 11/13 0800 11/13 0000 Intake Total 600 Output Total 400 Balance 200 Intake, Oral 600 Number 0 Bowel Movements Output, Urine 400 Physical Exam General Appearance: Alert, Oriented X3, Cooperative Cardiovascular: Regular Rate, Normal S1, Normal S2 Lungs: Clear to Auscultation Abdomen: Normal Bowel Sounds, Soft, No Tenderness Neurological: Normal Speech Extremities: No Edema, Limited movent in Left lowe extremity due to recent fall. Current Medications: Current Medications Sig/Myra Start time Last Medication Dose Route Stop Time Status Admin Acetaminophen 500 MG Q6P PRN 11/11 0545 AC 11/12 PO 2224 Amitriptyline HCl 25 MG 2300 11/10 2300 AC 11/12 PO 2224 Bisacodyl 5 MG DAILY 11/10 1700 AC 11/13 PO 0837 Gabapentin 300 MG QPM 11/10 2100 AC 11/11 PO 2120 Omeprazole 40 MG DAILY AC 11/10 0703 AC 11/13 PO 0650 Ondansetron HCl 4 MG Q6P PRN 11/12 1330 AC 11/13 IV 0847 Oxycodone HCl 5 MG Q6 PRN 11/10 1100 AC PO Rosuvastatin Calcium 5 MG Q48H 11/10 1700 AC 11/10 PO 1623 Senna 187 MG AT BEDTIME 11/10 2100 AC 11/12 PO 2105 Last 24 Hrs of Lab/Darryl Results Last 24 Hrs of Labs/Mics: Laboratory Tests 11/13/17 0643: CBC w Diff NO MAN DIFF REQ, RBC 4.44, MCV 88.6, MCH 30.5, MCHC 34.4, RDW 13.8, MPV 8.1, Gran % 54.9, Lymphocytes % 26.5, Monocytes % 13.8 H, Eosinophils % 4.1 , Basophils % 0.7, Absolute Granulocytes 2.4, Absolute Lymphocytes 1.2, Absolute Monocytes 0.6, Absolute Eosinophils 0.2, Absolute Basophils 0 Assessment/Plan Assessment: Ms Tompkins is a 67 YO F w/PMH significant for fibrimyalgia, interstitial cystitis , occasional vertigo, s/p cataract surgery, osteoporesis in left hip(sees Dr. Gonsales) s/p zolendronic acid infusion x3(last one 10 years ago) , GERD, hyperparathyroidism, nodule in parathyroid(?); she is unsure of the details, hyperlipidemia, occasional dysphagia underwent work up 10 years ago w/o any significant pathology determined, sleep apnea on CPAP who presented to the emergency department on 11/10/2017 after recent fall. Vital signs at the time of admission temperature 98.1, pulse 86, respirations 20 , blood pressure 162/74 saturating 94% on room air. Labs: WBC 8.8 H&H 13.5 and 39.9, platelets 233, sodium 141, potassium 4.4, chloride 105, bicarbonate 25, BUN 19, creatinine 0.8 She is currently admitted on the Gen. medical service for the following problems. Problems #Nondisplaced left acetabular fracture #Fibromyalgia #Osteoporosis #MARY KATE on CPAP #GERD #Hyperlipidemia Plan Imaging studies shown a nondisplaced left acetabular fracture with the fracture gap with a 1 mm. Will continue with conservative management and assess the patient for discharge. Left hemipelvic retroperitoneal hematoma appears stable owing to no changes or drops in H&H. Will need to follow-up with orthopedic service in 6 weeks. Pain control with Roxicodone PT evaluation C/w PPI Continue nocturnal CPAP. Patient is a full code Problem List: 1. Left acetabular fracture Pain Ratin Pain Location: Left Hip Pain Goal: Remain pain free Pain Plan: Tylenol and Roxicodone Tomorrow's Labs & Rationales: No Labs, pending discharge Merle Terrell 11/13/17 1013: Attending MD Review Statement Attending Statement Attending MD Statement: examined this patient, discuss w/resident/PA/MARKETING DESIGNER, agreed w/resident/PA/MARKETING DESIGNER, reviewed EMR data (avail), discussed with nursing, discussed with case mgmt Attending Assessment/Plan: Pt having nausea today which she has had in the past as well. Was given zofran. will try reglan prn as well. D/w pt the placement at [facility] and case management is going to work on placement and keep the patinet updated.
[2017-11-13 08:18] LABS: ABSOLUTE BASOPHIL COUNT 0 /CUMM (0.0-0.2); ABSOLUTE EOSINOPHIL COUNT 0.2 /CUMM (0.0-0.7); ABSOLUTE GRANULOCYTE CT 2.4 /CUMM (1.4-6.5); ABSOLUTE LYMPH COUNT 1.2 /CUMM (1.2-3.4); ABSOLUTE MONOCYTE COUNT 0.6 /CUMM (0.10-0.60); BASOPHIL % 0.7 % (0.0-2.0); EOSINOPHIL % 4.1 % (0-5); GRANULOCYTE % 54.9 % (42.2-75.2); HEMATOCRIT 39.3 % (37-47); MEAN CORPUSCULAR HGB 30.5 PG (27.0-31.0); MEAN CORPUSCULAR HGB CONC 34.4 G/DL (33.0-37.0); MEAN CORPUSCULAR VOLUME 88.6 FL (81.0-99.0); MEAN PLATELET VOLUME 8.1 FL (7.4-10.4); PLATELET COUNT 201 /CUMM (130-400); RBC DISTRIBUTION WIDTH 13.8 % (11.5-14.5); RED BLOOD CELL CT 4.44 /CUMM (4.20-5.40); WHITE BLOOD CELL COUNT 4.5 /CUMM (4.8-10.8)
[2017-11-13] MEDS ORDERED: REGLAN5 M1 PO (12:38)
[2017-11-13 14:08] VITALS: BP 120/68
[2017-11-13 21:16] VITALS: BP 120/62
[2017-11-14 07:01] VITALS: BP 112/70
--- NOTE | 2017-11-14 07:21 | PN- Housestaff ---
Shante CERVANTES,[facility] 11/14/17 0720: Subjective Follow-up For: Nondisplaced left acetabular fracture Subjective: Ms Tompkins was seen and examined this morning. She is resting comfortably in bed. Denies any issues overnight and has been tolerating by mouth intake Reglan well. She no longer feels nauseous and has been able to keep down food. Review of Systems Constitutional: Reports: see HPI. Objective Last 24 Hrs of Vital Signs/I&O Vital Signs Date Time Temp Pulse Resp B/P B/P Pulse O2 O2 Flow FiO2 Mean Ox Delivery Rate 11/14 1024 98.0 70 18 112/70 11/14 0701 98.0 70 18 112/70 97 11/13 2116 98.8 94 120/62 95 Room Air Intake & Output 11/14 1600 11/14 0800 11/14 0000 Intake Total 240 610 Output Total 300 Balance 240 310 Intake, IV 10 Intake, Oral 240 600 Number 2 Bowel Movements Output, Urine 300 Physical Exam General Appearance: Alert, Oriented X3, Cooperative Cardiovascular: Regular Rate, Normal S1, Normal S2 Lungs: Clear to Auscultation Abdomen: Normal Bowel Sounds, Soft, No Tenderness Neurological: Normal Gait, Normal Speech Extremities: No Clubbing, No Cyanosis, No Edema Current Medications: Current Medications Sig/Myra Start time Last Medication Dose Route Stop Time Status Admin Acetaminophen 650 MG .STK-MED ONE 11/14 0226 DC PO 11/14 0227 Acetaminophen 500 MG Q6P PRN 11/11 0545 DCD 11/14 PO 0230 Amitriptyline HCl 25 MG 2300 11/10 2300 DCD 11/13 PO 2228 Bisacodyl 5 MG DAILY 11/10 1700 DCD 11/14 PO 0815 Cholecalciferol 2,000 IU DAILY 11/14 0900 DCD 11/14 PO 0920 Gabapentin 300 MG QPM 11/10 2100 DCD 11/13 PO 2125 Lactobacillus 1 CAP BID 11/13 1545 DCD 11/14 Acidophilus PO 0815 Metoclopramide HCl 5 MG AC PRN 11/13 1545 DCD PO Omeprazole 40 MG DAILY AC 11/10 0703 DCD 11/14 PO 0657 Ondansetron HCl 4 MG .STK-MED ONE 11/13 1745 DC IV 11/13 1746 Ondansetron HCl 2 MG Q6P PRN 11/13 1600 DCD IV Ondansetron HCl 4 MG Q6P PRN 11/12 1330 DC 11/13 IV 0847 Oxycodone HCl 5 MG Q6 PRN 11/10 1100 DCD PO Rosuvastatin Calcium 5 MG Q48H 11/10 1700 DCD 11/10 PO 1623 Senna 187 MG AT BEDTIME 11/10 2100 DCD 11/13 PO 2126 Assessment/Plan Assessment: Ms Tompkins is a 67 YO F w/PMH significant for fibrimyalgia, interstitial cystitis , occasional vertigo, s/p cataract surgery, osteoporesis in left hip(sees Dr. Gonsales) s/p zolendronic acid infusion x3(last one 10 years ago) , GERD, hyperparathyroidism, nodule in parathyroid(?); she is unsure of the details, hyperlipidemia, occasional dysphagia underwent work up 10 years ago w/o any significant pathology determined, sleep apnea on CPAP who presented to the emergency department on 11/10/2017 after recent fall. Vital signs at the time of admission temperature 98.1, pulse 86, respirations 20 , blood pressure 162/74 saturating 94% on room air. Labs: WBC 8.8 H&H 13.5 and 39.9, platelets 233, sodium 141, potassium 4.4, chloride 105, bicarbonate 25, BUN 19, creatinine 0.8 She is currently admitted on the Gen. medical service for the following problems. Problems #Nondisplaced left acetabular fracture #Fibromyalgia #Osteoporosis #MARY KATE on CPAP #GERD #Hyperlipidemia Plan Stable for discharge Imaging studies shown a nondisplaced left acetabular fracture with the fracture gap with a 1 mm. Will continue with conservative management and assess the patient for discharge. Left hemipelvic retroperitoneal hematoma appears stable owing to no changes or drops in H&H. Will need to follow-up with orthopedic service in 6 weeks. Pain control with Roxicodone PT evaluation C/w PPI Continue nocturnal CPAP. Patient is a full code Problem List: 1. Left acetabular fracture Pain Ratin Pain Location: Left Hip Pain Goal: Remain pain free Pain Plan: Tylenol Tomorrow's Labs & Rationales: No Labs Merle Terrell 11/14/17 1111: Attending Review Statement Attending Statement Attending MD Statement: examined this patient, discuss w/resident/PA/FISH AND WILDLIFE TECHNICIAN, agreed w/resident/PA/FISH AND WILDLIFE TECHNICIAN, reviewed EMR data (avail), discussed with nursing, discussed with case mgmt Attending Assessment/Plan: Pts nausea much better after she got reglan yesterday. Plan is to dc her to [facility]. D/w pt the care plan.
[2017-11-14] MEDS ORDERED: TYLENOL EXTRA500 M2 PO (09:03)
[2017-11-14 10:24] VITALS: BP 112/70
== END 2017-11-14 11:15 | DRG 536 ==
LOC: ERH 02:24 → ERHI 08:26 → 2NB 08:26 → ENRESERV 09:52 → ENTRNSPT 10:36 → EDTRNSPTSTS 10:48 → 2NB 11:03 → CMPTRNSPT 11:18 → 2NB 19:43 → ENPENDDIS 11-14 10:33 → 2NB 11-14 11:15
PROVIDERS: Emergency Medicine; Internal Medicine; Student in an Organized Health Care Education/Training Program
DX: S32.402A Unspecified fracture of left acetabulum, initial encounter for closed fracture (principal); E78.5 Hyperlipidemia, unspecified; I10 Essential (primary) hypertension; M79.7 Fibromyalgia; K21.9 Gastro-esophageal reflux disease without esophagitis; G47.33 Obstructive sleep apnea (adult) (pediatric); W18.30XA Fall on same level, unspecified, initial encounter; Y92.008 Other place in unspecified non-institutional (private) residence as the place of occurrence of the external cause; Z88.7 Allergy status to serum and vaccine; Z88.8 Allergy status to other drugs, medicaments and biological substances; Z88.1 Allergy status to other antibiotic agents; Z91.040 Latex allergy status; M81.0 Age-related osteoporosis without current pathological fracture
CPT/HCPCS: 2NBP; 36415; 36592; 73502-LT; 73562-LT; 73610-LT; 81003; 82436; 93005; 93010; 96374; 96375; 97110-GO; 97116-GO; 97161-GP; 97530-GO; J0131; J1885; J2405